=== PATIENT | male | born 1940 | race Asian ===

== ENCOUNTER → 2016-09-16 | Outpatient (CLI) | payer MEDICARE, OTHER ==
[~2016-09-16] MED LIST: FLEXERIL PO; HCTZ PO; VICODIN 5/500 T1 TAB PO
--- NOTE | ~2016-09-16 | US5 ---
[facility] A Service of [facility] [place] RADIOLOGY TEXT RESULTS PATIENT: VALERIANO BLAKE LOCATION: [facility] [place] : 44 UNIT #: [id number] AGE: [address]: Everett Hickman MD SEX: M ORDER DR: [id number] [facility] [address] [place], [place] [address] [id number] O MR#: [id number] Acc #: [id number] NAME: VALERIANO BLAKE : 1940 SEX: M STUDY DATE/TIME: 09/16/2016 8:28 UNIT: [facility] [place] ROOM: STUDY DESCRIPTION: US Abdominal Complete Attending Physician: Everett Hickman III, M.D. Referring Physician: Everett Hickman III, M.D. Ordering Physician: Everett Hickman III, M.D. Primary Care Physician: Stefany Birmingham M.D. MEDICAL IMAGING REPORT This report is preliminary unless electronic signature is present EXAM Abdominal ultrasound, complete, 09/16/2016. HISTORY Hepatitis B, observation for hepatocellular carcinoma and cirrhosis. FINDINGS The liver demonstrates a coarsened echotexture as well as increased echotexture and attenuation of the ultrasound beam characteristic of fatty infiltration. No cystic or solid mass lesions were seen in the liver. The intra and extrahepatic bile ducts are not dilated. The gallbladder is normal with no evidence of cholelithiasis, wall thickening, or pericholecystic fluid. The common duct measures 3 mm. The pancreas is poorly visualized due to overlying bowel gas. The spleen measures 8.4 cm in greatest diameter. The visualized portions of the abdominal aorta and inferior vena cava are within normal limits. The kidneys are normal bilaterally. IMPRESSION 1. Coarsened liver echotexture and fatty infiltration of the liver. No cystic or solid mass lesions were seen within the liver. 2. Normal gallbladder. 3. Poor visualization of the pancreas due to overlying bowel gas. Overall no significant change compared with 04/04/2016. Dictated by... Mati Morales M.D. THIS IS AN ELECTRONICALLY VERIFIED REPORT Mati Morales M.D. at 09/17/2016 2:10 PM KRT/tmw [facility] A Service of [facility] [place] RADIOLOGY TEXT RESULTS PATIENT: VALERIANO BLAKE LOCATION: [facility] #: [id number] : 44 UNIT #: [id number] AGE: [address]: Everett Hickman MD SEX: M ORDER DR: TD: 09/16/2016 14:28 JOB #: [id number] MEDICAL IMAGING REPORT Page 1 of 1 COPY
== END | disposition home or self-care (01) ==
LOC: CGUS 07:53
DX: B18.2 Chronic viral hepatitis C (principal); R93.2 Abnormal findings on diagnostic imaging of liver and biliary tract
CPT/HCPCS: 76700